=== PATIENT | male | born 1955 | race African-American/Black ===

== ENCOUNTER 2017-01-24 21:20 | Inpatient (IN) | payer MEDICARE, MEDICAID ==
[~2017-01-24] VITALS: Ht 175.3 cm; Wt 75.2 kg
[2017-01-24] MEDS ORDERED: LORAZEPAM 0.5MG TABLET PO PRN (22:30)
[2017-01-24 23:24] VITALS: BP 148/81
[2017-01-25] MEDS: DILTIAZEM HCL 30MG TABLET PO SCH ×4 (01:05→17:16)
[2017-01-25] MEDS ORDERED: NAFCILLIN SODIUM 2,000 MG in SODIUM CHLORIDE 0.9% 100 ML IV SCH (02:00)
[2017-01-25] MEDS: NAFCILLIN SODIUM 2,000 MG in SODIUM CHLORIDE 0.9% 100 ML IV SCH ×6 (02:34→21:53)
[2017-01-25] MEDS: PANTOPRAZOLE 40MG DR TABLET PO SCH (06:21)
[2017-01-25 06:43] LABS: INR 1.1; PROTHROMBIN TIME 11.8 sec
[2017-01-25 07:06] LABS: CALCIUM 8.3 mg/dL (8.5-10.1)
[2017-01-25 07:40] LABS: HEMATOCRIT 31.4 % (42.0-52.0); HEMOGLOBIN 10.8 g/dL (14.0-18.0); MEAN CORPUSCULAR HEMOGLOBIN 31.4 pg (28.0-32.0); MEAN CORPUSCULAR HGB CONC 34.4 g/dL (31.0-37.0); MEAN CORPUSCULAR VOLUME 91.2 fL (80.0-94.0); PLATELET 247 x1000/uL (130-400); RED BLOOD CELL COUNT 3.44 mill/uL (4.7-6.1); RED CELL DISTRIBUTION WIDTH 14.3 % (11.6-14.6); WHITE BLOOD COUNT 8.1 x1000/uL (4.5-11.0)
[2017-01-25 08:00] VITALS: BP 149/99
[2017-01-25 09:09] LABS: MAGNESIUM 1.9 mg/dL (1.8-2.4)
[2017-01-25] MEDS: RIFAMPIN 300MG CAPSULE PO SCH ×2 (09:52→17:06)
[2017-01-25] MEDS: POTASSIUM CHLORIDE 20MEQ TABLET SR PO SCH ×2 (09:53→21:51)
[2017-01-25] MEDS: LEVETIRACETAM 500MG TABLET PO SCH ×2 (09:53→21:49)
[2017-01-25] MEDS: CARVEDILOL 25MG TABLET PO SCH ×2 (09:53→21:00)
[2017-01-25] MEDS: LACTOBACILLUS GG CAPSULE PO SCH (13:30)
[2017-01-25] MEDS: ENOXAPARIN 30MG/0.3ML SYR SUBCUT SCH (13:31)
[2017-01-25] MEDS ORDERED: CLONIDINE 0.2MG TABLET PO PRN (16:00)
[2017-01-25 20:00] VITALS: BP 176/90
[2017-01-25] MEDS: ATORVASTATIN CALCIUM 20MG TABLET PO SCH (21:49)
[2017-01-25] MEDS: CLONIDINE 0.2MG TABLET PO PRN (21:51)
[2017-01-26] MEDS: DILTIAZEM HCL 30MG TABLET PO SCH ×4 (00:08→17:55)
[2017-01-26] MEDS: NAFCILLIN SODIUM 2,000 MG in SODIUM CHLORIDE 0.9% 100 ML IV SCH ×6 (02:01→23:06)
[2017-01-26] MEDS: PANTOPRAZOLE 40MG DR TABLET PO SCH (06:04)
[2017-01-26] MEDS: CLONIDINE 0.2MG TABLET PO PRN (06:07)
[2017-01-26] MEDS ORDERED: [UNRECOGNIZED DRUG - CODE] PO (06:20)
[2017-01-26] MEDS ORDERED: WARF5TAB73 PO (06:21)
[2017-01-26 06:59] LABS: BASOPHILS % 0.5 % (0.0-2.0); EOSINOPHILS % 1.5 % (0.0-5.0); HEMATOCRIT. 31.8 % (42.0-52.0); LYMPHOCYTES % 20.2 % (20.0-50.0); MEAN CORPUSCULAR HEMOGLOBIN 31.5 pg (28.0-32.0); MEAN CORPUSCULAR HGB CONC 34.6 g/dL (31.0-37.0); MEAN CORPUSCULAR VOLUME 91.1 fL (80.0-94.0); MEAN PLATELET VOLUME 9.1 fl (7.4-10.4); MONOCYTES % 8.8 % (2.0-8.0); PLATELET 261 x1000/uL (130-400); RED BLOOD CELL COUNT 3.49 mill/uL (4.7-6.1); RED CELL DISTRIBUTION WIDTH 14.4 % (11.6-14.6); WHITE BLOOD COUNT 8.1 x1000/uL (4.5-11.0)
[2017-01-26 07:36] LABS: ALANINE AMINOTRANSFERASE 31 IU/L (13-61); ALBUMIN 2.5 g/dL (3.4-5.0); ANION GAP 11; CARBON DIOXIDE 28 mEq/L (21-32); CHLORIDE 108 mEq/L (98-107); HDL CHOLESTEROL 71 mg/dL (40-59); INDEX HEMOLYSI 1 (1-3); INDEX ICTERIC 1 (1-4); INDEX LIPEMIC 1 (1-3); LDL CHOLESTEROL 100 mg/dL (5-100); MAGNESIUM 1.9 mg/dL (1.8-2.4); NT PRO B-TYPE NATRIURETIC PEP 3339 pg/mL (5-125); PHOSPHORUS 3.4 mg/dL (2.5-4.9); TRIGLYCERIDE 60 mg/dL (0-150); TROPONIN I 0.33 ng/mL (0.00-0.04); UREA NITROGEN BLOOD 8 mg/dL (7-21); URIC ACID 3.4 mg/dL (2.6-7.2); eGFR 54 mL/min (>60)
[2017-01-26 08:00] VITALS: BP 155/92
[2017-01-26 08:46] LABS: CREATINE KINASE MB FRACTION 1.7 ng/mL (0.5-3.6)
[2017-01-26] MEDS: CARVEDILOL 25MG TABLET PO SCH ×2 (09:00→21:44)
[2017-01-26] MEDS: LACTOBACILLUS GG CAPSULE PO SCH (09:43)
[2017-01-26] MEDS: RIFAMPIN 300MG CAPSULE PO SCH ×2 (09:43→17:07)
[2017-01-26] MEDS: POTASSIUM CHLORIDE 20MEQ TABLET SR PO SCH ×2 (09:44→21:43)
[2017-01-26] MEDS: LEVETIRACETAM 500MG TABLET PO SCH ×2 (09:44→21:43)
[2017-01-26] MEDS: ENOXAPARIN 30MG/0.3ML SYR SUBCUT SCH (09:47)
[2017-01-26] MEDS ORDERED: CLONIDINE 0.1MG TABLET PO PRN (19:49)
[2017-01-26 20:00] VITALS: BP_SYST 125; BP_SYST 134; BP_DIAS 86; BP_DIAS 87
[2017-01-26] MEDS: ATORVASTATIN CALCIUM 20MG TABLET PO SCH (21:43)
[2017-01-27] MEDS: DILTIAZEM HCL 30MG TABLET PO SCH ×4 (00:30→18:03)
[2017-01-27] MEDS: NAFCILLIN SODIUM 2,000 MG in SODIUM CHLORIDE 0.9% 100 ML IV SCH ×6 (01:41→22:14)
[2017-01-27 08:19] VITALS: BP 141/84
[2017-01-27] MEDS ORDERED: GUAIFENESIN 200MG/10ML SUGAR FREE UDC PO PRN (09:00)
[2017-01-27] MEDS: RIFAMPIN 300MG CAPSULE PO SCH ×2 (09:06→18:00)
[2017-01-27] MEDS: ENOXAPARIN 30MG/0.3ML SYR SUBCUT SCH (09:06)
[2017-01-27] MEDS: FAMOTIDINE 20MG TABLET PO SCH (09:06)
[2017-01-27] MEDS: LACTOBACILLUS GG CAPSULE PO SCH (09:07)
[2017-01-27] MEDS: POTASSIUM CHLORIDE 20MEQ TABLET SR PO SCH ×2 (09:07→22:14)
[2017-01-27] MEDS: CARVEDILOL 25MG TABLET PO SCH ×2 (09:07→22:14)
[2017-01-27] MEDS: LEVETIRACETAM 500MG TABLET PO SCH ×2 (09:07→22:14)
[2017-01-27] MEDS: IPRATROPIUM/ALBUTEROL 0.5-3(2.5)MG/3ML NEB HHN SCH ×3 (12:00→21:10)
[2017-01-27] MEDS ORDERED: HYDROCODONE/ACETAMINOPHEN 5/325MG TABLET ONE (12:16)
[2017-01-27] MEDS: HYDROCODONE/ACETAMINOPHEN 5/325MG TABLET PO PRN (12:16)
[2017-01-27 20:00] VITALS: BP 157/98
[2017-01-27] MEDS: ATORVASTATIN CALCIUM 20MG TABLET PO SCH (22:13)
[2017-01-28] MEDS: NAFCILLIN SODIUM 2,000 MG in SODIUM CHLORIDE 0.9% 100 ML IV SCH ×6 (01:54→21:33)
[2017-01-28] MEDS: DILTIAZEM HCL 30MG TABLET PO SCH ×5 (01:54→23:16)
[2017-01-28] MEDS: IPRATROPIUM/ALBUTEROL 0.5-3(2.5)MG/3ML NEB HHN SCH ×6 (04:00→22:42)
[2017-01-28 06:59] LABS: HEMATOCRIT. 30.9 % (42.0-52.0); HEMOGLOBIN. 10.8 g/dL (14.0-18.0); MEAN CORPUSCULAR HEMOGLOBIN 32.2 pg (28.0-32.0); MEAN PLATELET VOLUME 9.3 fl (7.4-10.4); PLATELET 291 x1000/uL (130-400); RED BLOOD CELL COUNT 3.36 mill/uL (4.7-6.1); RED CELL DISTRIBUTION WIDTH 14.6 % (11.6-14.6)
[2017-01-28 07:05] LABS: DIFFERENTIAL COMMENT 1
[2017-01-28 07:22] LABS: INDEX HEMOLYSI 1 (1-3)
[2017-01-28 07:37] LABS: VITAMIN B12 SERUM 922 pg/mL (211-911)
[2017-01-28 08:00] VITALS: BP 150/92
[2017-01-28] MEDS: ENOXAPARIN 30MG/0.3ML SYR SUBCUT SCH (08:45)
[2017-01-28] MEDS: CARVEDILOL 25MG TABLET PO SCH ×2 (08:46→20:27)
[2017-01-28] MEDS: LEVETIRACETAM 500MG TABLET PO SCH ×2 (08:46→20:27)
[2017-01-28] MEDS: POTASSIUM CHLORIDE 20MEQ TABLET SR PO SCH ×2 (08:46→20:26)
[2017-01-28] MEDS: FAMOTIDINE 20MG TABLET PO SCH (08:46)
[2017-01-28] MEDS: RIFAMPIN 300MG CAPSULE PO SCH ×2 (08:46→17:45)
[2017-01-28] MEDS: LACTOBACILLUS GG CAPSULE PO SCH (08:46)
[2017-01-28 08:58] LABS: CALCIUM 8.5 mg/dL (8.5-10.1)
[2017-01-28] MEDS: HYDROCODONE/ACETAMINOPHEN 5/325MG TABLET PO PRN (08:59)
[2017-01-28 10:31] LABS: PLATELET ESTIMATE NORMAL
[2017-01-28 13:00] VITALS: BP 158/93
[2017-01-28 17:00] VITALS: BP 160/93
[2017-01-28 20:00] VITALS: BP 142/85
[2017-01-28] MEDS: ATORVASTATIN CALCIUM 20MG TABLET PO SCH (20:26)
[2017-01-29] MEDS: IPRATROPIUM/ALBUTEROL 0.5-3(2.5)MG/3ML NEB HHN SCH ×4 (00:30→20:02)
[2017-01-29] MEDS: NAFCILLIN SODIUM 2,000 MG in SODIUM CHLORIDE 0.9% 100 ML IV SCH ×6 (01:26→21:46)
[2017-01-29] MEDS: DILTIAZEM HCL 30MG TABLET PO SCH ×3 (05:30→17:19)
[2017-01-29 08:00] VITALS: BP 155/105
[2017-01-29] MEDS: FAMOTIDINE 20MG TABLET PO SCH (08:39)
[2017-01-29] MEDS: LACTOBACILLUS GG CAPSULE PO SCH (08:39)
[2017-01-29] MEDS: POTASSIUM CHLORIDE 20MEQ TABLET SR PO SCH ×2 (08:39→20:44)
[2017-01-29] MEDS: ENOXAPARIN 30MG/0.3ML SYR SUBCUT SCH (08:39)
[2017-01-29] MEDS: RIFAMPIN 300MG CAPSULE PO SCH ×2 (08:40→17:19)
[2017-01-29] MEDS: CARVEDILOL 25MG TABLET PO SCH ×2 (08:40→20:45)
[2017-01-29] MEDS: LEVETIRACETAM 500MG TABLET PO SCH ×2 (08:40→20:44)
[2017-01-29] MEDS ORDERED: AMLODIPINE 2.5MG TABLET PO NR (10:15)
[2017-01-29 12:00] VITALS: BP 142/94
[2017-01-29] MEDS: TAMSULOSIN HCL 0.4MG SR CAPSULE PO SCH (12:35)
[2017-01-29 17:00] VITALS: BP 167/108
[2017-01-29 20:00] VITALS: BP 151/84
[2017-01-29] MEDS: ATORVASTATIN CALCIUM 20MG TABLET PO SCH (20:44)
[2017-01-30] MEDS: NAFCILLIN SODIUM 2,000 MG in SODIUM CHLORIDE 0.9% 100 ML IV SCH ×6 (01:03→21:40)
[2017-01-30] MEDS: DILTIAZEM HCL 30MG TABLET PO SCH ×2 (01:05→05:57)
[2017-01-30 07:10] LABS: HEMATOCRIT. 33.1 % (42.0-52.0); HEMOGLOBIN. 11.4 g/dL (14.0-18.0); MEAN CORPUSCULAR HEMOGLOBIN 31.8 pg (28.0-32.0); MEAN CORPUSCULAR HGB CONC 34.4 g/dL (31.0-37.0); MEAN CORPUSCULAR VOLUME 92.4 fL (80.0-94.0); MEAN PLATELET VOLUME 9.3 fl (7.4-10.4); PLATELET 301 x1000/uL (130-400); RED BLOOD CELL COUNT 3.58 mill/uL (4.7-6.1); RED CELL DISTRIBUTION WIDTH 14.9 % (11.6-14.6); WHITE BLOOD COUNT 6.4 x1000/uL (4.5-11.0)
[2017-01-30 07:13] LABS: DIFFERENTIAL COMMENT 1
[2017-01-30] MEDS: IPRATROPIUM/ALBUTEROL 0.5-3(2.5)MG/3ML NEB HHN SCH ×5 (07:16→21:33)
[2017-01-30 07:22] LABS: CALCIUM 8.7 mg/dL (8.5-10.1)
[2017-01-30 08:00] VITALS: BP 161/103
[2017-01-30] MEDS: LEVETIRACETAM 500MG TABLET PO SCH ×2 (08:40→21:39)
[2017-01-30] MEDS: LACTOBACILLUS GG CAPSULE PO SCH (08:40)
[2017-01-30] MEDS: RIFAMPIN 300MG CAPSULE PO SCH ×2 (08:40→16:52)
[2017-01-30] MEDS: ENOXAPARIN 30MG/0.3ML SYR SUBCUT SCH (08:40)
[2017-01-30] MEDS: FAMOTIDINE 20MG TABLET PO SCH (08:40)
[2017-01-30] MEDS: POTASSIUM CHLORIDE 20MEQ TABLET SR PO SCH ×2 (08:40→21:40)
[2017-01-30] MEDS: CARVEDILOL 25MG TABLET PO SCH ×2 (08:41→21:00)
[2017-01-30] MEDS: TAMSULOSIN HCL 0.4MG SR CAPSULE PO SCH (08:41)
[2017-01-30] MEDS ORDERED: AMLODIPINE 2.5MG TABLET PO SCH (09:00)
[2017-01-30] MEDS: DILTIAZEM HCL 60MG TABLET PO SCH ×2 (10:56→16:52)
[2017-01-30] MEDS: AMLODIPINE 5MG TABLET PO SCH (10:56)
[2017-01-30] MEDS ORDERED: WARFARIN SODIUM 5MG TABLET PO SCH (18:00)
[2017-01-30 20:00] VITALS: BP 107/62
[2017-01-30] MEDS: ATORVASTATIN CALCIUM 20MG TABLET PO SCH (21:39)
[2017-01-30 22:14] LABS: ATYPICAL LYMPHOCYTES 2; PLATELET ESTIMATE NORMAL
[2017-01-31] MEDS: IPRATROPIUM/ALBUTEROL 0.5-3(2.5)MG/3ML NEB HHN SCH ×6 (01:18→20:32)
[2017-01-31] MEDS: DILTIAZEM HCL 60MG TABLET PO SCH ×5 (01:54→23:16)
[2017-01-31] MEDS: NAFCILLIN SODIUM 2,000 MG in SODIUM CHLORIDE 0.9% 100 ML IV SCH ×6 (01:54→21:08)
[2017-01-31 06:20] LABS: INR 1.1; PROTHROMBIN TIME 11.8 sec
[2017-01-31 08:00] VITALS: BP 119/73
[2017-01-31] MEDS: POTASSIUM CHLORIDE 20MEQ TABLET SR PO SCH ×2 (08:21→20:36)
[2017-01-31] MEDS: LACTOBACILLUS GG CAPSULE PO SCH (08:22)
[2017-01-31] MEDS: TAMSULOSIN HCL 0.4MG SR CAPSULE PO SCH (08:22)
[2017-01-31] MEDS: FAMOTIDINE 20MG TABLET PO SCH (08:22)
[2017-01-31] MEDS: LEVETIRACETAM 500MG TABLET PO SCH ×2 (08:22→20:36)
[2017-01-31] MEDS: CARVEDILOL 25MG TABLET PO SCH ×2 (08:22→20:36)
[2017-01-31] MEDS: RIFAMPIN 300MG CAPSULE PO SCH ×2 (08:22→16:41)
[2017-01-31] MEDS: HYDROCODONE/ACETAMINOPHEN 5/325MG TABLET PO PRN (08:23)
[2017-01-31] MEDS: ENOXAPARIN 30MG/0.3ML SYR SUBCUT SCH (08:23)
[2017-01-31] MEDS: AMLODIPINE 5MG TABLET PO SCH (09:00)
[2017-01-31 13:17] VITALS: BP 88/44
[2017-01-31] MEDS ORDERED: WARFARIN SODIUM 7.5MG TABLET PO NR (18:00)
[2017-01-31 20:00] VITALS: BP 130/78
[2017-01-31] MEDS: ATORVASTATIN CALCIUM 20MG TABLET PO SCH (20:36)
[2017-02-01] MEDS: NAFCILLIN SODIUM 2,000 MG in SODIUM CHLORIDE 0.9% 100 ML IV SCH ×6 (01:17→21:07)
[2017-02-01] MEDS: DILTIAZEM HCL 60MG TABLET PO SCH ×4 (05:46→23:49)
[2017-02-01 08:00] VITALS: BP 148/114
[2017-02-01] MEDS: IPRATROPIUM/ALBUTEROL 0.5-3(2.5)MG/3ML NEB HHN SCH ×6 (08:00→21:55)
[2017-02-01] MEDS: FAMOTIDINE 20MG TABLET PO SCH (08:48)
[2017-02-01] MEDS: TAMSULOSIN HCL 0.4MG SR CAPSULE PO SCH (08:48)
[2017-02-01] MEDS: POTASSIUM CHLORIDE 20MEQ TABLET SR PO SCH ×2 (08:48→21:06)
[2017-02-01] MEDS: LEVETIRACETAM 500MG TABLET PO SCH ×2 (08:48→21:06)
[2017-02-01] MEDS: LACTOBACILLUS GG CAPSULE PO SCH (08:49)
[2017-02-01] MEDS: AMLODIPINE 5MG TABLET PO SCH (08:49)
[2017-02-01] MEDS: CARVEDILOL 25MG TABLET PO SCH ×2 (08:49→21:06)
[2017-02-01] MEDS: RIFAMPIN 300MG CAPSULE PO SCH ×2 (08:49→17:20)
[2017-02-01] MEDS: ENOXAPARIN 30MG/0.3ML SYR SUBCUT SCH (08:50)
[2017-02-01] MEDS: HYDROCODONE/ACETAMINOPHEN 5/325MG TABLET PO PRN (08:57)
[2017-02-01 11:45] VITALS: BP 109/80
[2017-02-01] MEDS ORDERED: HYDROCODONE/ACETAMINOPHEN 5/325MG TABLET PO PRN (13:00)
[2017-02-01 17:22] VITALS: BP 131/83
[2017-02-01 20:00] VITALS: BP 158/81
[2017-02-01] MEDS: TRAZODONE HCL 50MG TABLET PO SCH (21:06)
[2017-02-01] MEDS: ATORVASTATIN CALCIUM 20MG TABLET PO SCH (21:06)
[2017-02-02] MEDS: NAFCILLIN SODIUM 2,000 MG in SODIUM CHLORIDE 0.9% 100 ML IV SCH ×6 (01:24→22:07)
[2017-02-02] MEDS: IPRATROPIUM/ALBUTEROL 0.5-3(2.5)MG/3ML NEB HHN SCH ×4 (04:00→12:00)
[2017-02-02] MEDS: DILTIAZEM HCL 60MG TABLET PO SCH ×3 (05:11→17:43)
[2017-02-02 08:00] VITALS: BP 112/66
[2017-02-02] MEDS: CARVEDILOL 25MG TABLET PO SCH ×2 (09:00→20:51)
[2017-02-02] MEDS: POTASSIUM CHLORIDE 20MEQ TABLET SR PO SCH ×2 (10:11→20:50)
[2017-02-02] MEDS: ENOXAPARIN 30MG/0.3ML SYR SUBCUT SCH (10:11)
[2017-02-02] MEDS: LACTOBACILLUS GG CAPSULE PO SCH (10:12)
[2017-02-02] MEDS: RIFAMPIN 300MG CAPSULE PO SCH ×2 (10:12→17:39)
[2017-02-02] MEDS: LEVETIRACETAM 500MG TABLET PO SCH ×2 (10:12→20:50)
[2017-02-02] MEDS: TAMSULOSIN HCL 0.4MG SR CAPSULE PO SCH (10:13)
[2017-02-02] MEDS: CITALOPRAM HYDROBROMIDE 10MG TABLET PO SCH (10:14)
[2017-02-02] MEDS: FAMOTIDINE 20MG TABLET PO SCH (10:14)
[2017-02-02] MEDS: AMLODIPINE 5MG TABLET PO SCH (10:15)
[2017-02-02] MEDS ORDERED: IPRATROPIUM/ALBUTEROL 0.5-3(2.5)MG/3ML NEB HHN PRN (13:45)
[2017-02-02 20:00] VITALS: BP 149/94
[2017-02-02] MEDS: TRAZODONE HCL 50MG TABLET PO SCH (20:51)
[2017-02-02] MEDS: ATORVASTATIN CALCIUM 20MG TABLET PO SCH (20:51)
[2017-02-03] MEDS: DILTIAZEM HCL 60MG TABLET PO SCH ×4 (00:57→17:52)
[2017-02-03] MEDS: NAFCILLIN SODIUM 2,000 MG in SODIUM CHLORIDE 0.9% 100 ML IV SCH ×6 (03:15→21:39)
[2017-02-03 06:24] LABS: EOSINOPHILS % 2.1 % (0.0-5.0); HEMATOCRIT. 33.7 % (42.0-52.0); HEMOGLOBIN. 11.4 g/dL (14.0-18.0); LYMPHOCYTES % 29.6 % (20.0-50.0); MEAN CORPUSCULAR HEMOGLOBIN 31.5 pg (28.0-32.0); MEAN CORPUSCULAR VOLUME 92.7 fL (80.0-94.0); MEAN PLATELET VOLUME 9.3 fl (7.4-10.4); MONOCYTES % 11.1 % (2.0-8.0); NEUTROPHILS % 56.2 % (40.0-76.0); PLATELET 292 x1000/uL (130-400); RED BLOOD CELL COUNT 3.63 mill/uL (4.7-6.1); WHITE BLOOD COUNT 5.4 x1000/uL (4.5-11.0)
[2017-02-03 08:00] VITALS: BP 134/83
[2017-02-03] MEDS: ENOXAPARIN 30MG/0.3ML SYR SUBCUT SCH (09:19)
[2017-02-03] MEDS: POTASSIUM CHLORIDE 20MEQ TABLET SR PO SCH ×2 (09:20→21:47)
[2017-02-03] MEDS: RIFAMPIN 300MG CAPSULE PO SCH ×2 (09:20→17:52)
[2017-02-03] MEDS: LACTOBACILLUS GG CAPSULE PO SCH (09:20)
[2017-02-03] MEDS: TAMSULOSIN HCL 0.4MG SR CAPSULE PO SCH (09:20)
[2017-02-03] MEDS: CARVEDILOL 25MG TABLET PO SCH ×2 (09:21→21:40)
[2017-02-03] MEDS: FAMOTIDINE 20MG TABLET PO SCH (09:21)
[2017-02-03] MEDS: AMLODIPINE 5MG TABLET PO SCH (09:21)
[2017-02-03] MEDS: CITALOPRAM HYDROBROMIDE 10MG TABLET PO SCH (09:21)
[2017-02-03] MEDS: LEVETIRACETAM 500MG TABLET PO SCH ×2 (09:21→21:40)
[2017-02-03] MEDS: ACETAMINOPHEN 325MG TABLET PO PRN (15:18)
[2017-02-03 20:00] VITALS: BP 141/88
[2017-02-03] MEDS: ATORVASTATIN CALCIUM 20MG TABLET PO SCH (21:40)
[2017-02-03] MEDS: TRAZODONE HCL 50MG TABLET PO SCH (21:40)
[2017-02-04] MEDS: DILTIAZEM HCL 60MG TABLET PO SCH ×4 (01:21→17:01)
[2017-02-04] MEDS: NAFCILLIN SODIUM 2,000 MG in SODIUM CHLORIDE 0.9% 100 ML IV SCH ×5 (01:21→17:01)
[2017-02-04] MEDS: ACETAMINOPHEN 325MG TABLET PO PRN (05:26)
[2017-02-04 08:00] VITALS: BP 145/89
[2017-02-04] MEDS: CITALOPRAM HYDROBROMIDE 10MG TABLET PO SCH (08:41)
[2017-02-04] MEDS: TAMSULOSIN HCL 0.4MG SR CAPSULE PO SCH (08:41)
[2017-02-04] MEDS: AMLODIPINE 5MG TABLET PO SCH (08:41)
[2017-02-04] MEDS: FAMOTIDINE 20MG TABLET PO SCH (08:41)
[2017-02-04] MEDS: CARVEDILOL 25MG TABLET PO SCH ×2 (08:41→21:59)
[2017-02-04] MEDS: RIFAMPIN 300MG CAPSULE PO SCH ×2 (08:41→17:01)
[2017-02-04] MEDS: LEVETIRACETAM 500MG TABLET PO SCH ×2 (08:41→21:59)
[2017-02-04] MEDS: POTASSIUM CHLORIDE 20MEQ TABLET SR PO SCH ×2 (08:41→21:59)
[2017-02-04] MEDS: LACTOBACILLUS GG CAPSULE PO SCH (08:41)
[2017-02-04] MEDS: ENOXAPARIN 30MG/0.3ML SYR SUBCUT SCH (08:42)
[2017-02-04 17:44] VITALS: BP 140/73
[2017-02-04 20:00] VITALS: BP 160/96
[2017-02-04] MEDS: ATORVASTATIN CALCIUM 20MG TABLET PO SCH (21:59)
[2017-02-04] MEDS: TRAZODONE HCL 50MG TABLET PO SCH (21:59)
== END 2017-02-04 22:10 | DRG 64 ==
PROVIDERS: ADMIT Psychiatry & Neurology Neurology; ATTEND Internal Medicine Geriatric Medicine
DX: I63.9 Cerebral infarction, unspecified (principal); G93.41 Metabolic encephalopathy; A41.01 Sepsis due to Methicillin susceptible Staphylococcus aureus; R65.21 Severe sepsis with septic shock; I33.0 Acute and subacute infective endocarditis; N17.0 Acute kidney failure with tubular necrosis; G93.6 Cerebral edema; I61.9 Nontraumatic intracerebral hemorrhage, unspecified; M62.82 Rhabdomyolysis; I13.0 Hypertensive heart and chronic kidney disease with heart failure and stage 1 through stage 4 chronic kidney disease, or unspecified chronic kidney disease; I24.8 Other forms of acute ischemic heart disease; E46 Unspecified protein-calorie malnutrition; I11.9 Hypertensive heart disease without heart failure; I25.10 Atherosclerotic heart disease of native coronary artery without angina pectoris; D64.9 Anemia, unspecified; E11.22 Type 2 diabetes mellitus with diabetic chronic kidney disease; E11.65 Type 2 diabetes mellitus with hyperglycemia; E87.6 Hypokalemia; F32.9 Major depressive disorder, single episode, unspecified; G40.909 Epilepsy, unspecified, not intractable, without status epilepticus; I05.9 Rheumatic mitral valve disease, unspecified; I48.2 Chronic atrial fibrillation; I50.9 Heart failure, unspecified; N18.9 Chronic kidney disease, unspecified; G89.4 Chronic pain syndrome; G47.00 Insomnia, unspecified; Z79.01 Long term (current) use of anticoagulants; Z79.899 Other long term (current) drug therapy; Z86.73 Personal history of transient ischemic attack (TIA), and cerebral infarction without residual deficits; Z95.2 Presence of prosthetic heart valve; Z68.24 Body mass index [BMI] 24.0-24.9, adult
CPT/HCPCS: 36415; 70450; 80048; 80053; 80061; 82550; 82553; 82607; 82962; 83036; 83735; 83880; 84100; 84443; 84484; 84550; 85025; 85027; 85610; 87040; 92523; 92610; 93005; 93306; 93970; 94640; 94664; 97110; 97112; 97116; 97150; 97163; 97167; 97530; 97535; A4565; J1650; J3490; J7050; J7620